=== PATIENT | female | born 1970 | race Two or more races ===

== ENCOUNTER 2021-08-01 10:37 | Inpatient (IN) | payer OTHER ==
[~2021-08-01] VITALS: Ht 165.1 cm; Wt 97.1 kg
[2021-08-02] MEDS ORDERED: COZAAR50 MG PO (08:06)
[2021-08-02] MEDS ORDERED: SYNTHROID75 MCG PO (08:06)
[2021-08-02] MEDS ORDERED: NEXIUM40 M1 PO (08:07)
[2021-08-06] MEDS ORDERED: PERCOCET 5-3251 EACH PO (15:02)
[2021-08-06] MEDS ORDERED: INTEGRA PLUS C1 EACH PO (15:03)
[2021-08-06] MEDS ORDERED: LEVSIN/SL0.125 MG SL (15:04)
== END 2021-08-06 22:52 | disposition home or self-care (01) | DRG 330 ==
LOC: O/R 08-03 06:36 → SURH 08-03 12:15
PROVIDERS: Obstetrics & Gynecology Gynecologic Oncology; ADMIT Surgery; ATTEND Surgery
PROC: 07BB0ZZ Excision of Mesenteric Lymphatic, Open Approach (ICD-10-PCS; 2021-08-03)
PROC: 0DBU0ZZ Excision of Omentum, Open Approach (ICD-10-PCS; 2021-08-03)
PROC: 0DBW0ZZ Excision of Peritoneum, Open Approach (ICD-10-PCS; 2021-08-03)
PROC: 0UT50ZZ Resection of Right Fallopian Tube, Open Approach (ICD-10-PCS; 2021-08-03)
PROC: 0UT00ZZ Resection of Right Ovary, Open Approach (ICD-10-PCS; 2021-08-03)
PROC: 0UB40ZZ Excision of Uterine Supporting Structure, Open Approach (ICD-10-PCS; 2021-08-03)
PROC: 3E0F7SF Introduction of Other Gas into Respiratory Tract, Via Natural or Artificial Opening (ICD-10-PCS; 2021-08-03)
PROC: 0DTF0ZZ Resection of Right Large Intestine, Open Approach (ICD-10-PCS; principal; 2021-08-03 12:15)
PROC: 07BC0ZZ Excision of Pelvis Lymphatic, Open Approach (ICD-10-PCS; 2021-08-03 12:15)
DX: C18.0 Malignant neoplasm of cecum (principal); C78.6 Secondary malignant neoplasm of retroperitoneum and peritoneum; C79.61 Secondary malignant neoplasm of right ovary; C77.5 Secondary and unspecified malignant neoplasm of intrapelvic lymph nodes; K62.5 Hemorrhage of anus and rectum; D28.2 Benign neoplasm of uterine tubes and ligaments; N83.291 Other ovarian cyst, right side; R59.0 Localized enlarged lymph nodes; N85.2 Hypertrophy of uterus; R93.5 Abnormal findings on diagnostic imaging of other abdominal regions, including retroperitoneum; E03.9 Hypothyroidism, unspecified; I10 Essential (primary) hypertension; Z53.31 Laparoscopic surgical procedure converted to open procedure

== ENCOUNTER 2021-09-07 08:10 | Day surgery (SDC) | payer OTHER ==
[~2021-09-07 08:10] MED LIST: COZAAR50 MG PO; INTEGRA PLUS C1 EACH PO; LEVSIN/SL0.125 MG SL; NEXIUM40 M1 PO; PERCOCET 5-3251 EACH PO; SYNTHROID75 MCG PO
[2021-09-07] MEDS ORDERED: ULTRAM50 MG PO (09:25)
== END 2021-09-07 14:40 | disposition home or self-care (01) ==
LOC: CIR.AMB 08:10 → EDSTATUS 11:15 → SURG 11:15 → CIR.AMB 14:40
PROVIDERS: ATTEND Surgery
DX: C18.0 Malignant neoplasm of cecum (principal); C78.6 Secondary malignant neoplasm of retroperitoneum and peritoneum; C18.1 Malignant neoplasm of appendix; Z88.8 Allergy status to other drugs, medicaments and biological substances; Z20.822 Contact with and (suspected) exposure to COVID-19; I10 Essential (primary) hypertension

== ENCOUNTER 2022-02-19 04:17 | Inpatient (IN) | payer OTHER ==
[~2022-02-19] VITALS: Ht 170.2 cm; Wt 77.1 kg
[~2022-02-19 04:17] MED LIST changes: +ULTRAM50 MG PO
[2022-02-20] MEDS ORDERED: DEXAMETHASO4 MG/1 M1 (15:01)
[2022-02-20] MEDS ORDERED: DODEX1000 MCG/1 (15:01)
[2022-02-20] MEDS ORDERED: ERBITUX200 MG/100 (15:01)
[2022-02-20] MEDS ORDERED: DIPHENHYDR50 MG/1 M1 (15:01)
[2022-02-20] MEDS ORDERED: FLUOROURAC1 GM/20 ML (15:02)
[2022-02-20] MEDS ORDERED: APREPITANT1 EACH (15:02)
[2022-02-20] MEDS ORDERED: OXALIPLATI100 MG/20 (15:02)
[2022-02-20] MEDS ORDERED: ONDANSETRON4 MG/2 M5 (15:02)
[2022-02-20] MEDS ORDERED: LEUCOVORIN CAL (15:02)
[2022-03-02] MEDS ORDERED: PERCOCET 5-3251 EACH PO (14:02)
[2022-03-02] MEDS ORDERED: PRILOSEC OTC20 MG PO (14:02)
[2022-03-02] MEDS ORDERED: NEURONTIN300 MG PO (14:02)
== END 2022-03-02 23:02 | disposition home or self-care (01) | DRG 388 ==
LOC: ER 04:17 → SURH 11:38 → SEC-K 11:38 → SURH 12:32 → MEDJ 02-22 12:32 → SURG 02-28 15:47
PROVIDERS: ADMIT Surgery; ATTEND Surgery
PROC: 0D9670Z Drainage of Stomach with Drainage Device, Via Natural or Artificial Opening (ICD-10-PCS; principal; 2022-02-19)
PROC: 3E0336Z Introduction of Nutritional Substance into Peripheral Vein, Percutaneous Approach (ICD-10-PCS; 2022-02-20)
PROC: 02HV33Z Insertion of Infusion Device into Superior Vena Cava, Percutaneous Approach (ICD-10-PCS; 2022-02-22)
PROC: 3E0436Z Introduction of Nutritional Substance into Central Vein, Percutaneous Approach (ICD-10-PCS; 2022-02-22)
PROC: 8E0ZXY6 Isolation (ICD-10-PCS; 2022-02-22)
PROC: 4A12X4Z Monitoring of Cardiac Electrical Activity, External Approach (ICD-10-PCS; 2022-02-22)
PROC: BW21Y0Z Computerized Tomography (CT Scan) of Abdomen and Pelvis using Other Contrast, Unenhanced and Enhanced (ICD-10-PCS; 2022-02-26)
DX: K56.600 Partial intestinal obstruction, unspecified as to cause (principal); U07.1 COVID-19; N39.0 Urinary tract infection, site not specified; C18.0 Malignant neoplasm of cecum; C79.9 Secondary malignant neoplasm of unspecified site; K56.7 Ileus, unspecified; B95.7 Other staphylococcus as the cause of diseases classified elsewhere; K52.9 Noninfective gastroenteritis and colitis, unspecified

== ENCOUNTER 2022-04-15 10:24 | Inpatient (IN) | payer OTHER ==
[~2022-04-15] VITALS: Ht 165.1 cm; Wt 0.5 kg
[~2022-04-15 10:24] MED LIST changes: +APREPITANT1 EACH; +DEXAMETHASO4 MG/1 M1; +DIPHENHYDR50 MG/1 M1; +DODEX1000 MCG/1; +ERBITUX200 MG/100; +FLUOROURAC1 GM/20 ML; +LEUCOVORIN CAL; +NEURONTIN300 MG PO; +ONDANSETRON4 MG/2 M5; +OXALIPLATI100 MG/20; +PRILOSEC OTC20 MG PO
[2022-04-15] MEDS ORDERED: COZAAR100 MG (10:34)
[2022-04-15] MEDS ORDERED: AMLODIPINE-OLM1 EAC2 (10:35)
[2022-04-15] MEDS ORDERED: PEPCID AC20 MG (10:35)
[2022-04-15] MEDS ORDERED: PROTONIX20 MG (10:37)
[2022-04-15] MEDS ORDERED: MEGESTROL ACETA20 MG (10:37)
--- NOTE | 2022-04-15 10:38 | NUR ---
SE RECIBE PTE LA CUAL LLEGA EN AMBULANCIA TRANSFERIDA DEL [facility], LA CUAL REFIERE SBO Y DISTENCION ABDOMINAL, AL MOMENTO PTE LLEGA CANALIZADA EN MANO LT CON ANGIO #20 RECIBIENDO 0.9% NSS Y NGT EN FOSA NASAL LT #16. SE PRESENTA A DR MAHARAJ Y SE UBICA EN AREA DE OBSERVACION.
--- NOTE | 2022-04-15 11:56 | NUR ---
PTE ALERTA,ESTABLE Y ORIENTADA.SE EDUCA SOBRE EL TRATAMIENTO QUE RECIBIRA EN EL HOSPITAL Y ESTA REFIERE ENTENDER.PTE LLEGA EN AMBULANCIA CON TUBO NGT LADO MICHELE
--- NOTE | 2022-04-15 14:56 | NUR ---
SE CADE RONDAS PREVENTIVAS PTE NO REFIERE DOLOR.
== END 2022-05-24 19:12 | disposition expired | DRG 389 ==
LOC: ER 10:24 → SURG 15:35 → SURH 15:35
PROVIDERS: ADMIT Surgery; ATTEND Surgery
PROC: 0D9670Z Drainage of Stomach with Drainage Device, Via Natural or Artificial Opening (ICD-10-PCS; 2022-04-15)
PROC: 02HV33Z Insertion of Infusion Device into Superior Vena Cava, Percutaneous Approach (ICD-10-PCS; principal; 2022-04-16)
PROC: 4A12X4Z Monitoring of Cardiac Electrical Activity, External Approach (ICD-10-PCS; 2022-04-19)
PROC: 30243N1 Transfusion of Nonautologous Red Blood Cells into Central Vein, Percutaneous Approach (ICD-10-PCS; 2022-04-21)
PROC: BW211ZZ Computerized Tomography (CT Scan) of Abdomen and Pelvis using Low Osmolar Contrast (ICD-10-PCS; 2022-04-22)
PROC: 06HY33Z Insertion of Infusion Device into Lower Vein, Percutaneous Approach (ICD-10-PCS; 2022-04-28)
PROC: 5A1D70Z Performance of Urinary Filtration, Intermittent, Less than 6 Hours Per Day (ICD-10-PCS; 2022-04-28)
PROC: 5A1D70Z Performance of Urinary Filtration, Intermittent, Less than 6 Hours Per Day (ICD-10-PCS; 2022-04-29)
PROC: 06PYX3Z Removal of Infusion Device from Lower Vein, External Approach (ICD-10-PCS; 2022-05-01)
PROC: 06HM33Z Insertion of Infusion Device into Right Femoral Vein, Percutaneous Approach (ICD-10-PCS; 2022-05-01)
PROC: 5A1D70Z Performance of Urinary Filtration, Intermittent, Less than 6 Hours Per Day (ICD-10-PCS; 2022-05-01)
PROC: 5A1D70Z Performance of Urinary Filtration, Intermittent, Less than 6 Hours Per Day (ICD-10-PCS; 2022-05-02)
PROC: 0W993ZZ Drainage of Right Pleural Cavity, Percutaneous Approach (ICD-10-PCS; 2022-05-03)
PROC: 0W9B3ZZ Drainage of Left Pleural Cavity, Percutaneous Approach (ICD-10-PCS; 2022-05-04)
PROC: 5A1D70Z Performance of Urinary Filtration, Intermittent, Less than 6 Hours Per Day (ICD-10-PCS; 2022-05-04)
PROC: 5A1D70Z Performance of Urinary Filtration, Intermittent, Less than 6 Hours Per Day (ICD-10-PCS; 2022-05-05)
PROC: 5A1D70Z Performance of Urinary Filtration, Intermittent, Less than 6 Hours Per Day (ICD-10-PCS; 2022-05-07)
PROC: 5A1D70Z Performance of Urinary Filtration, Intermittent, Less than 6 Hours Per Day (ICD-10-PCS; 2022-05-09)
PROC: 5A1D70Z Performance of Urinary Filtration, Intermittent, Less than 6 Hours Per Day (ICD-10-PCS; 2022-05-11)
PROC: 5A1D70Z Performance of Urinary Filtration, Intermittent, Less than 6 Hours Per Day (ICD-10-PCS; 2022-05-12)
PROC: 5A1D70Z Performance of Urinary Filtration, Intermittent, Less than 6 Hours Per Day (ICD-10-PCS; 2022-05-14)
PROC: 5A1D70Z Performance of Urinary Filtration, Intermittent, Less than 6 Hours Per Day (ICD-10-PCS; 2022-05-15)
PROC: 5A1D70Z Performance of Urinary Filtration, Intermittent, Less than 6 Hours Per Day (ICD-10-PCS; 2022-05-16)
PROC: 5A1D70Z Performance of Urinary Filtration, Intermittent, Less than 6 Hours Per Day (ICD-10-PCS; 2022-05-17)
PROC: 5A1D70Z Performance of Urinary Filtration, Intermittent, Less than 6 Hours Per Day (ICD-10-PCS; 2022-05-19)
PROC: 5A1D70Z Performance of Urinary Filtration, Intermittent, Less than 6 Hours Per Day (ICD-10-PCS; 2022-05-21)
DX: K56.51 Intestinal adhesions [bands], with partial obstruction (principal); C18.0 Malignant neoplasm of cecum; C78.6 Secondary malignant neoplasm of retroperitoneum and peritoneum; C78.7 Secondary malignant neoplasm of liver and intrahepatic bile duct; N17.9 Acute kidney failure, unspecified; J90 Pleural effusion, not elsewhere classified; I12.9 Hypertensive chronic kidney disease with stage 1 through stage 4 chronic kidney disease, or unspecified chronic kidney disease; Z66 Do not resuscitate; D63.8 Anemia in other chronic diseases classified elsewhere; E03.9 Hypothyroidism, unspecified; G40.909 Epilepsy, unspecified, not intractable, without status epilepticus; G89.3 Neoplasm related pain (acute) (chronic); F45.8 Other somatoform disorders; F43.20 Adjustment disorder, unspecified; M62.50 Muscle wasting and atrophy, not elsewhere classified, unspecified site